=== PATIENT | female | born 1985 | race Two or more races ===

== ENCOUNTER 2023-12-16 12:38 | Emergency (ER) | payer BC ==
[~2023-12-16] VITALS: Ht 162.6 cm; Wt 90.9 kg
[2023-12-16 12:41] VITALS: TEMP 98.5
[2023-12-16] MEDS ORDERED: htn PO (12:43)
[2023-12-16 14:19] LABS: BASOPHILS % (AUTO) 0.5 % (0.0-2.0); HEMATOCRIT 40.1 % (36-46); HEMOGLOBIN 13.8 g/dL (12.0-16.0); LYMPHOCYTES # (AUTO) 1.7 K/uL (1.0-4.8); LYMPHOCYTES % (AUTO) 17.8 % (22.0-44.0); MEAN CORPUSCULAR HEMOGLOBIN 31.6 pg (26.0-34.0); MEAN CORPUSCULAR HGB CONC 34.4 G/dL (31.0-37.0); MEAN CORPUSCULAR VOLUME 92 fL (80-100); MONOCYTES # (AUTO) 0.5 K/uL (0.1-1.0); MONOCYTES % (AUTO) 5.6 % (2.0-9.0); NEUTROPHILS # (AUTO) 7.3 K/uL (1.8-7.7); NEUTROPHILS % (AUTO) 75.1 % (40.0-70.0); PLATELET COUNT (AUTO) 280 K/uL (150-450); RED BLOOD CELL COUNT(AUTO) 4.36 MIL/uL (4.00-5.20); RED CELL DISTRIBUTION WIDTH 13.1 % (11.5-14.5); WHITE BLOOD COUNT (AUTO) 9.8 K/uL (4.5-11.0)
[2023-12-16 14:21] LABS: ANION GAP 13 mmol/L (8-16); CALCIUM, TOTAL 9.9 mg/dL (8.8-10.5); CARBON DIOXIDE 22 mmol/L (22-29); CHLORIDE 103 mmol/L (98-107); CREATININE 0.44 mg/dL (0.60-1.30); GLOMERULAR FILTR. RATE CALC > 60 mL/min (>60); GLUCOSE,RANDOM 94 mg/dL (70-110); POTASSIUM 3.8 mmol/L (3.5-5.1); SODIUM SERUM 138 mmol/L (136-145); UREA NITROGEN, BLOOD 6 mg/dL (7-18)
[2023-12-16 14:48] VITALS: RESP 18
[2023-12-16 14:50] LABS: ALANINE AMINOTRANSFERASE 42 U/L (12-78); ALBUMIN 3.3 g/dL (3.4-5.0); ALKALINE PHOSPHATASE 58 U/L (46-116); ASPARTATE AMINOTRANSFERASE 20 U/L (15-37); BILIRUBIN,TOTAL 0.4 mg/dL (0.1-1.0); TOTAL PROTEIN, SERUM 7.7 g/dL (6.4-8.2)
[2023-12-16 15:07] LABS: APPEARANCE,URINE CLEAR (CLEAR); BILIRUBIN,URINE NEGATIVE (NEGATIVE); COLOR,URINE YELLOW (YELLOW); GLUCOSE, URINE (UA) NEGATIVE (NEGATIVE); LEUKOCYTE ESTERASE ,URINE NEGATIVE (NEGATIVE); NITRATE,URINE NEGATIVE (NEGATIVE); OCCULT BLOOD,URINE SMALL (NEGATIVE); PH,URINE 5.5 (5.0-8.0); PROTEIN,URINE NEGATIVE (NEGATIVE); SPECIFIC GRAVITIY, URINE 1.014 (1.003-1.030); UROBILINOGEN,URINE <=1.0 mg/dL (<=1.0)
[2023-12-16 15:37] VITALS: BP 141/78; PULSE 73
[2023-12-16] MEDS: SODIUM CHLORIDE 0.9% 1,000 ML IV ONE (15:37)
[2023-12-16] MEDS: LABETALOL HCL 5 MG/ML 20 ML VIAL IVP ONE (15:37)
[2023-12-16 15:54] LABS: BACTERIA,URINE None Seen /HPF (None Seen); WBC,URINE 0-2 /HPF (0-5)
== END 2023-12-16 17:12 | disposition home or self-care (01) ==
LOC: EMS 12:52
DX: O20.0 Threatened abortion (principal); I10 Essential (primary) hypertension; Z3A.10 10 weeks gestation of pregnancy
CPT/HCPCS: 99284; 96360; 76801; 80053; 81001; 84702; 85025; 86901; 36415; J7030

== ENCOUNTER 2025-05-15 15:17 | Emergency (ER) | payer BC ==
[~2025-05-15] VITALS: Ht 165.1 cm; Wt 95.0 kg
[~2025-05-15 15:17] MED LIST: htn PO
[2025-05-15 15:22] VITALS: BP 143/89; PULSE 74; RESP 18; TEMP 97.7; O2SAT 99
[2025-05-15 15:56] LABS: HCG,QUAL URINE POSITIVE (NEGATIVE)
[2025-05-15 15:57] LABS: APPEARANCE,URINE CLEAR (CLEAR); GLUCOSE, URINE (UA) NEGATIVE (NEGATIVE); LEUKOCYTE ESTERASE ,URINE NEGATIVE (NEGATIVE); NITRATE,URINE NEGATIVE (NEGATIVE); OCCULT BLOOD,URINE LARGE (NEGATIVE); SPECIFIC GRAVITIY, URINE 1.018 (1.003-1.030)
[2025-05-15 16:19] LABS: SQUAMOUS EPITHELIAL CELL,UR Few /LPF (None Seen)
[2025-05-15] MEDS: SODIUM CHLORIDE 0.9% 1,000 ML IV ONE (16:26)
== END 2025-05-15 20:17 | disposition home or self-care (01) ==
LOC: EMS 15:17
DX: O20.8 Other hemorrhage in early pregnancy (principal); N89.8 Other specified noninflammatory disorders of vagina; O10.911 Unspecified pre-existing hypertension complicating pregnancy, first trimester; Z3A.08 8 weeks gestation of pregnancy; Z79.899 Other long term (current) drug therapy
CPT/HCPCS: 76801; 81001; 84702; 84703; 96360; 96361; 99284; J7030; 36415-L1; 36415-TC